=== PATIENT | female | born 1985 | race African-American/Black ===

== ENCOUNTER 2018-07-13 10:47 | Emergency (ER) | payer OTHER ==
[~2018-07-13] VITALS: Ht 177.8 cm; Wt 149.7 kg
[2018-07-13 11:37] LABS: URINE BILIRUBIN NEGATIVE (Negative); URINE BLOOD NEGATIVE (Negative); URINE CLARITY CLEAR; URINE COLOR YELLOW; URINE GLUCOSE-RANDOM* NEGATIVE (Negative); URINE KETONES NEGATIVE (Negative); URINE LEUKOCYTES-REFLEX NEGATIVE (Negative); URINE NITRITE-REFLEX NEGATIVE (Negative); URINE PROTEIN (DIPSTICK) NEGATIVE (Negative); URINE UROBILINOGEN 0.2 E.U./dl (0.2-1.0)
[2018-07-13] MEDS ORDERED: PENICILLIN V P500 MG PO (11:59)
[2018-07-13] MEDS ORDERED: MOBIC7.5 MG PO (12:01)
[2018-07-13] MEDS ORDERED: PHENAZOPYRIDIN200 M2 PO (12:01)
[2018-07-13 12:25] VITALS: BP 121/70
== END 2018-07-13 12:25 | disposition home or self-care (01) ==
LOC: ER 10:47
PROVIDERS: Physician Assistant
DX: J03.90 Acute tonsillitis, unspecified (principal); R30.0 Dysuria

== ENCOUNTER 2018-08-19 09:55 | Emergency (ER) | payer OTHER ==
[~2018-08-19] VITALS: Ht 175.3 cm; Wt 145.2 kg
[~2018-08-19 09:55] MED LIST: MOBIC7.5 MG PO; PENICILLIN V P500 MG PO; PHENAZOPYRIDIN200 M2 PO
[2018-08-19] MEDS ORDERED: ALLEGRA-D 12 H1 EAC1 PO (10:43)
[2018-08-19] MEDS ORDERED: PREDNISONE 20 M20 MG PO (10:43)
[2018-08-19 11:15] VITALS: BP 146/66
== END 2018-08-19 11:11 | disposition home or self-care (01) ==
LOC: ER 09:55
DX: J02.9 Acute pharyngitis, unspecified (principal); J30.2 Other seasonal allergic rhinitis; R09.82 Postnasal drip

== ENCOUNTER 2020-02-20 21:10 | Emergency (ER) | payer OTHER ==
[~2020-02-20] VITALS: Ht 175.3 cm; Wt 142.9 kg
[~2020-02-20 21:10] MED LIST changes: +ALLEGRA-D 12 H1 EAC1 PO; +PREDNISONE 20 M20 MG PO
[2020-02-20 23:55] LABS: CALCIUM 9.6 mg/dL (8.5-10.1); CREATININE 0.8 mg/dL (0.6-1.0); MAGNESIUM 1.8 mg/dL (1.8-2.4); POTASSIUM 3.6 mmol/L (3.5-5.1)
[2020-02-21 00:50] LABS: ABSOLUTE NEUTROPHILS 7.9 thou/uL (1.4-8.2); BASOPHILS 0.4 % (0.0-2.0); EOSINOPHILS 0.9 % (0.0-3.0); HEMATOCRIT 36.1 % (37.0-47.0); HEMOGLOBIN 11.4 gm/dL (12.0-15.0); LYMPHOCYTES 25.4 % (24.0-44.0); MCH 24.3 pg (26.0-34.0); MCHC 31.6 g/dL (28.0-37.0); MCV 76.7 fL (80.0-100.0); MONOCYTES 6.2 % (1.0-8.0); PLATELET COUNT 468 thou/uL (150-400); POLYS 67.1 % (36.0-66.0); RDW 15.7 % (10.5-14.5); WBC 11.7 thou/uL (4.0-11.0)
[2020-02-21 00:56] VITALS: BP 122/81
--- NOTE | 2020-02-21 12:45 | EKG ---
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
== END 2020-02-21 01:03 | disposition home or self-care (01) ==
LOC: ER 21:10
PROVIDERS: Emergency Medicine
DX: R20.2 Paresthesia of skin (principal)